=== PATIENT | male | born 1980 | race Caucasian/White ===

== ENCOUNTER 2017-01-06 11:30 | Emergency (ER) | payer OTHER, MEDICAID ==
[2017-01-06] MEDS ORDERED: KETOROLAC 60 MG/2 ML VIAL IM STA (12:16)
[2017-01-06] MEDS ORDERED: HYDROcod/ACETAM 5/325 MG TABLET PO STA (12:16)
[2017-01-06] MEDS ORDERED: METHOCARBAMOL 500 MG TABLET PO STA (12:16)
[2017-01-06] MEDS ORDERED: DEXAMETHASONE 10 MG/ML VIAL PO STA (12:16)
[2017-01-06] MEDS ORDERED: KETOROLAC 60 MG/2 ML VIAL ONE (12:23)
[2017-01-06] MEDS ORDERED: CHERRY SYRUP 10 ML UDC PO ONE (12:23)
[2017-01-06] MEDS ORDERED: HYDROcod/ACETAM 5/325 MG TABLET ONE (12:23)
[2017-01-06] MEDS ORDERED: DEXAMETHASONE 10 MG/ML VIAL ONE (12:23)
[2017-01-06] MEDS ORDERED: METHOCARBAMOL 500 MG TABLET PO ONE (12:23)
== END 2017-01-06 12:49 | disposition home or self-care (01) ==
DX: S39.012A Strain of muscle, fascia and tendon of lower back, initial encounter (principal); M51.17 Intervertebral disc disorders with radiculopathy, lumbosacral region; X50.0XXA Overexertion from strenuous movement or load, initial encounter; Y92.69 Other specified industrial and construction area as the place of occurrence of the external cause; Y99.0 Civilian activity done for income or pay; F17.200 Nicotine dependence, unspecified, uncomplicated
CPT/HCPCS: 72100; 96372; 99283; A9270